=== PATIENT | female | born 1965 | race Caucasian/White ===

== ENCOUNTER 2019-03-11 18:04 | Emergency (ER) | payer OTHER ==
[2019-03-11 18:57] LABS: Protime INR 1.03
[2019-03-11 18:59] LABS: Absolute Lymphocytes (CBC) 2.2 K/uL (0.7-4.9); Basophils % 0.4 % (0-1.3); Hematocrit 39.9 % (36.0-45.0); Lymphocytes % 30.8 % (15.3-44.8); MPV 8.6 fL (7.6-11.3); RBC Red Blood Cell Count 4.75 M/uL (3.86-4.86)
--- NOTE | 2019-03-11 19:10 | RAD REPORT ---
EXAM DESCRIPTION: RAD - Chest Single View - 03/11/2019 7:00 pm CLINICAL HISTORY: CHEST PAIN Chest pain. COMPARISON: No comparisons FINDINGS: Portable technique limits examination quality. The lungs are grossly clear. The heart is normal in size. No displaced fractures. IMPRESSION: No acute intrathoracic process suspected.
[2019-03-11 19:18] LABS: ALT/SGPT 22 U/L (12-78); AST/SGOT 10 U/L (15-37); Alkaline Phosphatase 85 U/L (45-117); BUN Blood Urea Nitrogen 16 mg/dL (7-18); Bicarbonate 29 mmol/L (21-32); Bilirubin Direct 0.1 mg/dL (0-0.2); Bilirubin Total 0.4 mg/dL (0.2-1.0); Glucose Level 105 mg/dL (74-106); Magnesium 2.2 mg/dL (1.8-2.4); NT PRO-BNP 32 pg/mL (<125); Potassium 3.8 mmol/L (3.5-5.1); Protein, Total 7.4 g/dL (6.4-8.2); Sodium Level 144 mmol/L (136-145); Troponin (Emerg Dept Use Only) < 0.02 ng/mL (0.0-0.045)
[2019-03-11 20:58] LABS: Urine Blood NEGATIVE (NEG); Urine Glucose NEGATIVE (NEG); Urine Protein NEGATIVE (NEG); Urine Specific Gravity 1.015 (1.005-1.030); Urine pH 7.5 (5.0-7.0)
--- NOTE | 2019-03-11 22:03 | ER ---
Nurse's Notes [facility] Name: Melissa Chaudhry Age: 53 yrs Sex: Female : 1965 Arrival Date: 03/11/2019 Time: 18:09 Bed 17 Private MD: Carlyle Perea Diagnosis: Chest pain, unspecified Presentation: 03/11 18:16 Presenting complaint: Sudden severe sharp chest pain that radiated to left arm while hb straining to have a bowel movement. Pain lasted approx 10-15 seconds. Denies pain/SOB/nausea at this time. Transition of care: patient was not received from another setting of care. Onset of symptoms was March 11, 2019 at 13:00. Risk Assessment: Do you want to hurt yourself or someone else? Patient reports no desire to harm self or others. Initial Sepsis Screen: Does the patient meet any 2 criteria? No. Patient's initial sepsis screen is negative. Does the patient have a suspected source of infection? No. Patient's initial sepsis screen is negative. Care prior to arrival: None. 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 - Social history:: Smoking status: Patient/guardian denies using tobacco. - Ebola Screening: : No symptoms or risks identified at this time. Screenin:00 Abuse screen: Denies threats or abuse. Denies injuries from another. Nutritional rr5 screening: No deficits noted. Tuberculosis screening: No symptoms or risk factors identified. Fall Risk IV access (20 points). Total Whitten Fall Scale indicates No Risk (0-24 pts). Assessment: 19:00 General: Appears in no apparent distress. comfortable, Behavior is calm, cooperative, rr5 appropriate for age. 19:00 Pain: Denies pain. Neuro: Level of Consciousness is awake, alert, obeys commands, rr5 Oriented to person, place, time, situation, Appropriate for age. Cardiovascular: Reports episode of chest pain Capillary refill < 3 seconds Patient's skin is warm and dry. Respiratory: Airway is patent Respiratory effort is even, unlabored, Respiratory pattern is regular, symmetrical. GI: Abdomen is round Bowel sounds present X 4 quads. Abd is soft and non tender Reports constipation. : No signs and/or symptoms were reported regarding the genitourinary system. EENT: No signs and/or symptoms were reported regarding the EENT system. Derm: Skin is intact, Skin temperature is warm. Musculoskeletal: Circulation, motion, and sensation intact. Capillary refill < 3 seconds. 19:35 Reassessment: Patient appears in no apparent distress at this time. Patient and/or rr5 family updated on plan of care and expected duration. Pain level reassessed. Patient is alert, oriented x 3, equal unlabored respirations, skin warm/dry/pink. awaiting for result. Patient denies pain at this time. 20:20 Reassessment: Patient appears in no apparent distress at this time. Patient and/or rr5 family updated on plan of care and expected duration. Pain level reassessed. Patient is alert, oriented x 3, equal unlabored respirations, skin warm/dry/pink. review done for repeat troponin at 2130. 21:30 Reassessment: Patient appears in no apparent distress at this time. Patient and/or rr5 family updated on plan of care and expected duration. Pain level reassessed. Patient is alert, oriented x 3, equal unlabored respirations, skin warm/dry/pink. repeat troponin extracted and sent to laboratory Patient denies pain at this time. 22:05 Reassessment: Patient appears in no apparent distress at this time. Patient is alert, rr5 oriented x 3, equal unlabored respirations, skin warm/dry/pink. discharge instruction given and explained without complaints made. Patient denies pain at this time. Patient states feeling better. Patient states symptoms have improved. Vital Signs: 18:18 BP 140 / 76; Pulse 62; Resp 16; Temp 97.8; Pulse Ox 100% on R/A; Weight 104.33 kg; hb Height 5 ft. 7 in. (170.18 cm); Pain 0/10; 19:00 BP 120 / 75; Pulse 66; Resp 17; Temp 97.5; Pulse Ox 99% ; Pain 0/10; rr5 20:00 BP 121 / 62; Pulse 69; Resp 16; Pulse Ox 98% ; Pain 0/10; rr5 21:00 BP 112 / 71; Pulse 58; Resp 16; Pulse Ox 98% on R/A; rr5 22:00 BP 116 / 66; Pulse 60; Resp 17; Temp 97.8; Pulse Ox 99% ; rr5 18:18 Body Mass Index 36.02 (104.33 kg, 170.18 cm) ED Course: 18:09 Patient arrived in ED. mr 18:10 Carlyle Perea MD is Private Physician. mr 18:18 Triage completed. hb 18:18 Arm band placed on. hb 18:20 Pedro Luis Martino PA is PHCP. cp 18:20 Jewel Dye MD is Attending Physician. cp 18:31 Senthil Anna LVN is Primary Nurse. em 19:00 Patient has correct armband on for positive identification. monitor car operator on. Pulse rr5 ox on. NIBP on. 19:00 Inserted saline lock: 20 gauge in right antecubital area, using aseptic technique. rr5 ,using aseptic technique. inserted by senthil Blood collected. 19:01 XRAY Chest (1 view) In Process Unspecified. EDMS 22:02 Giovanny Swenson MD is Referral Physician. cp 22:21 IV discontinued, intact, bleeding controlled, No redness/swelling at site. Pressure rr5 dressing applied. 22:21 No provider procedures requiring assistance completed. rr5 Administered Medications: No medications were administered Outcome: 22:02 Discharge ordered by . cp 22:21 Discharged to home ambulatory, with family. rr5 22:21 Condition: stable 22:21 Discharge instructions given to patient, Instructed on discharge instructions, follow up and referral plans. Demonstrated understanding of instructions, follow-up care. 22:22 Patient left the ED. rr5 Signatures: Dispatcher [employer] EDAR Brennan Jasmyn shukla Senthil Anna LVN CLOUD CONSULTANT Pedro Luis Martino PA PA cp Miriam Garcia RN RN Andrew Granda RN RN rr5
--- NOTE | 2019-03-11 22:04 | EDPHYS ---
Physician Documentation [facility] Name: Melissa Chaudhry Age: 53 yrs Sex: Female : 1965 Arrival Date: 03/11/2019 Time: 18:09 Bed 17 Private MD: Carlyle Perea ED Physician Jewel Dye HPI: 03/11 18:35 This 53 yrs old Female presents to ER via Ambulatory with complaints of cp Constipation, Chest Pain. 18:35 The patient or guardian reports chest pain that is located primarily in the anterior cp chest wall, left. 18:35 Onset: today, about 1300. The pain radiates to the left arm. Associated signs and cp symptoms: Pertinent negatives: abdominal pain, cough, diaphoresis, dizziness, lower extremity pain, lower extremity swelling, palpitations, recent travel, shortness of breath, syncope. The chest pain is described as sharp. Duration: The patient or guardian reports a single episode, that is now resolved. Severity of pain: in the emergency department the pain has resolved and did so earlier today. Patient reports having sudden, sharp chest pain while having a bowel movement today around 1300. Patient reports pain lasted approximately 15 to 20 seconds and then resolved. Patient reports that while in waiting room she had an episode of chest pressure. 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 - Social history:: Smoking status: Patient/guardian denies using tobacco. - Ebola Screening: : No symptoms or risks identified at this time. ROS: 18:40 Constitutional: Negative for body aches, chills, fever, poor PO intake. cp 18:40 Eyes: Negative for injury, pain, redness, and discharge. cp 18:40 ENT: Negative for drainage from ear(s), ear pain, sore throat, difficulty swallowing, difficulty handling secretions. 18:40 Cardiovascular: Positive for chest pain, Negative for edema, palpitations. 18:40 Respiratory: Negative for cough, shortness of breath, wheezing. 18:40 Abdomen/GI: Negative for abdominal pain, nausea, vomiting, and diarrhea, black/tarry stool, rectal bleeding. 18:40 Back: Negative for pain at rest, pain with movement. 18:40 Skin: Negative for rash. 18:40 Neuro: Negative for altered mental status, dizziness, headache, syncope, weakness. 18:40 All other systems are negative. Exam: 18:45 ECG was reviewed by the Attending Physician. cp 18:47 Constitutional: The patient appears in no acute distress, alert, awake, comfortable, cp non-diaphoretic, non-toxic, well developed, well nourished. 18:47 Head/Face: Normocephalic, atraumatic. cp 18:47 Eyes: Periorbital structures: appear normal, Conjunctiva: normal, no exudate, no injection, Sclera: no appreciated abnormality, Lids and lashes: appear normal, bilaterally. 18:47 ENT: External ear(s): are unremarkable, Nose: is normal, Mouth: Lips: moist, Oral mucosa: pink and intact, moist, Posterior pharynx: is normal, airway is patent, no erythema, no exudate. 18:47 Neck: ROM/movement: is normal, is supple, without pain, no range of motions limitations, no nuchal rigidity. 18:47 Chest/axilla: Inspection: normal, Palpation: is normal, no crepitus, no tenderness. 18:47 Cardiovascular: Rate: normal, Rhythm: regular, Edema: is not appreciated, JVD: is not appreciated. 18:47 Respiratory: the patient does not display signs of respiratory distress, Respirations: normal, no use of accessory muscles, no retractions, no splinting, no tachypnea, labored breathing, is not present, Breath sounds: are clear throughout, no decreased breath sounds, no stridor, no wheezing. 18:47 Abdomen/GI: Inspection: abdomen appears normal, Palpation: abdomen is soft and non-tender, in all quadrants. 18:47 Back: pain, is absent, ROM is normal. 18:47 Neuro: Orientation: to person, place \T\ time. Mentation: is normal, Cerebellar function: is grossly normal, Motor: moves all fours, strength is normal, Sensation: is normal. 21:38 ECG was reviewed by the Attending Physician. cp Vital Signs: 18:18 BP 140 / 76; Pulse 62; Resp 16; Temp 97.8; Pulse Ox 100% on R/A; Weight 104.33 kg; hb Height 5 ft. 7 in. (170.18 cm); Pain 0/10; 19:00 BP 120 / 75; Pulse 66; Resp 17; Temp 97.5; Pulse Ox 99% ; Pain 0/10; rr5 20:00 BP 121 / 62; Pulse 69; Resp 16; Pulse Ox 98% ; Pain 0/10; rr5 21:00 BP 112 / 71; Pulse 58; Resp 16; Pulse Ox 98% on R/A; rr5 22:00 BP 116 / 66; Pulse 60; Resp 17; Temp 97.8; Pulse Ox 99% ; rr5 18:18 Body Mass Index 36.02 (104.33 kg, 170.18 cm) hb MDM: 18:28 Patient medically screened. cp 22:02 Data reviewed: vital signs, nurses notes, lab test result(s), EKG, radiologic studies, cp plain films. 22:02 Differential diagnosis: abnormal EKG, acute myocardial infarction, cholecystitis, cp Cholelithiasis costochondritis, esophagitis, gastritis, pancreatitis, pleurisy, pneumonia, pneumothorax, pulmonary embolus, stable angina, unstable angina. Test interpretation: by ED physician or midlevel provider: ECG, plain radiologic studies. Special discussion: Based on the patient's history, exam, and Dx evaluation, there is no indication for emergent intervention or inpatient Tx. It is understood by the patient/guardian that if the Sx's persist or worsen they need to return immediately for re-evaluation. ED course: VSS. No complaints of chest pain while in ED. Initial and repeat EKG and troponin negative. Will discharge to home for continued monitoring and refer to cardiology. 03/11 18:37 Order name: Basic Metabolic Panel cp 03/11 18:37 Order name: CBC with Diff; Complete Time: 19:48 cp 03/11 21:03 Interpretation: Reviewed. 03/11 18:37 Order name: LFT's cp 03/11 18:37 Order name: Magnesium; Complete Time: 19:48 cp 03/11 18:37 Order name: NT PRO-BNP; Complete Time: 19:48 cp 03/11 18:37 Order name: PT-INR; Complete Time: 19:48 cp 03/11 18:29 Order name: EKG; Complete Time: 18:29 cp / 18:37 Order name: Troponin (emerg Dept Use Only); Complete Time: 19:48 cp 03/11 19:49 Interpretation: TROPED < 0.02; Reviewed. cp 03/11 18:37 Order name: XRAY Chest (1 view); Complete Time: 19:48 cp 03/11 19:48 Interpretation: Report review. cp 03/11 18:38 Order name: Basic Metabolic Panel; Complete Time: 19:48 EDMS 03/11 21:03 Interpretation: Normal except: CL 109. cp 03/11 18:38 Order name: Liver (Hepatic) Function; Complete Time: 19:48 EDMS 03/11 21:03 Interpretation: Normal except: AST 10. cp 03/11 20:38 Order name: Urine Dipstick--Ancillary (enter results); Complete Time: 21:02 ar5 03/11 21:02 Interpretation: Normal except: UPH 7.5. cp 03/11 20:38 Order name: Urine --Ancillary (enter results); Complete Time: 21:02 ar5 03/11 21:14 Order name: Troponin (emerg Dept Use Only); Complete Time: 22:02 rr5 03/11 18:29 Order name: EKG - Nurse/Tech; Complete Time: 18:46 cp 03/11 18:37 Order name: Cardiac monitoring; Complete Time: 19:18 cp 03/11 18:37 Order name: IV Saline Lock; Complete Time: 19:18 cp 03/11 18:37 Order name: Labs collected and sent; Complete Time: 19:08 cp 03/11 18:37 Order name: O2 Per Protocol; Complete Time: 19:08 cp 03/11 18:37 Order name: O2 Sat Monitoring; Complete Time: 19:08 cp 03/11 18:37 Order name: Urine Dipstick-Ancillary (obtain specimen); Complete Time: 20:40 cp 03/11 18:37 Order name: Urine Test (obtain specimen); Complete Time: 20:40 cp 03/11 21:25 Order name: EKG; Complete Time: 21:25 cp 03/11 21:25 Order name: EKG - Nurse/Tech; Complete Time: 21:29 cp EC:45 Rate is 58 beats/min. Rhythm is regular. AL interval is normal. QRS interval is normal. cp QT interval is normal. Interpreted by me. Reviewed by me. 21:38 Rate is 52 beats/min. Rhythm is regular. AL interval is normal. QRS interval is normal. cp QT interval is normal. Interpreted by me. Reviewed by me. Administered Medications: No medications were administered Disposition: 03/11/19 22:02 Discharged to Home. Impression: Chest pain, unspecified. - Condition is Stable. - Discharge Instructions: Nonspecific Chest Pain, Aspirin and Your Heart. - Medication Reconciliation Form, Thank You Letter, Antibiotic Education, Prescription Opioid Use form. - Follow up: Giovanny Swenson MD; When: 2 - 3 days; Reason: Recheck today's complaints. - Problem is new. - Symptoms are resolved. Signatures: Dispatcher [employer] EDMS Pedro Luis Martino PA PA cp Baxter, Heather, RN RN hb Andrew rGanda RN RN rr5 Corrections: (The following items were deleted from the chart) 19:47 17:45 ECG was reviewed by the Attending Physician. cp 19:47 17:45 Rate is 58 beats/min. QRS Warren is Normal. AL interval is normal. QRS interval is cp normal. QT interval is normal. Interpreted by me. Reviewed by me. cp 22:22 22:02 03/11/2019 22:02 Discharged to Home. Impression: Chest pain, unspecified. rr5 Condition is Stable. Forms are Medication Reconciliation Form, Thank You Letter, Antibiotic Education, Prescription Opioid Use. Follow up: Giovanny Swenson; When: 2 - 3 days; Reason: Recheck today's complaints. Problem is new. Symptoms are resolved. cp
--- NOTE | 2019-03-12 16:57 | EKG ---
Test Date: 2019-03-11 Test Time: 21:21:35 Supervisor Drying And Winding: RR MEASUREMENT RESULTS: Intervals: Rate: 52 MN: 176 QRSD: 94 QT: 448 QTc: 416 Fannin: P: 47 MN: 176 QRS: 30 T: 44 INTERPRETIVE STATEMENTS: Sinus bradycardia Cannot rule out Anterior infarct, age undetermined Abnormal ECG Compared to ECG 03/11/2019 18:38:24 Myocardial infarct finding now present Electronically Signed On 03-12-19 16:56:00 CDT by Bakari Dc
--- NOTE | 2019-03-12 16:58 | EKG ---
Test Date: 2019-03-11 Test Time: 18:38:24 Carver Hand: KARENT MEASUREMENT RESULTS: Intervals: Rate: 58 MI: 162 QRSD: 96 QT: 418 QTc: 410 Winn: P: 39 MI: 162 QRS: 15 T: 49 INTERPRETIVE STATEMENTS: Sinus bradycardia Otherwise normal ECG No previous ECG available for comparison Electronically Signed On 03-12-19 16:56:11 CDT by Bakari Dc
== END 2019-03-11 22:22 | disposition home or self-care (01) ==
LOC: ER 18:04
DX: R07.9 Chest pain, unspecified (principal)
CPT/HCPCS: 36415; 71045; 80048; 80076; 81003; 81025; 83735; 83880; 84484; 85025; 85610; 93005; 99284